=== PATIENT | female | born 1990 | race Two or more races ===

== ENCOUNTER 2016-03-25 08:03 | Day surgery (SDC) | payer OTHER ==
[2016-03-25] MEDS ORDERED: LIDOCAINE 1% 2 ML VIAL ID PRN (08:31)
[2016-03-25] MEDS ORDERED: LACTATED RINGERS 1,000 ML IV PRN (08:34)
[2016-03-25] MEDS ORDERED: IV START KIT ONE (09:25)
[2016-03-25] MEDS ORDERED: SODIUM CHLORIDE 0.9% FLUSH 10 ML ONE (09:26)
[2016-03-25] MEDS ORDERED: MIDAZOLAM HCL 1 MG/ML 2ML VIAL ONE (09:31)
[2016-03-25] MEDS ORDERED: FENTANYL 5 ML ONE (09:31)
[2016-03-25] MEDS ORDERED: LIDOCAINE 2% (PRES FREE) 5 ML VIAL ONE (09:32)
[2016-03-25] MEDS ORDERED: PROPOFOL 40 ML IV ONE (09:32)
--- NOTE | 2016-03-25 09:35 | US ---
PELVIC COMPLETE, TRANSVAGINAL ECHOGRAPHY History: Pre-D&C with the patient expects to be at 10 weeks 2 days gestational age. Previous ultrasound which is currently unavailable short no cardiac activity. Comparison: None available. Procedure: Transabdominal and transvaginal ultrasonography both were performed for this examination. Findings: Uterus: The uterus measures 11.6 x 4.4 x 5.3 cm. No myometrial mass is visualized. Endometrium: The endometrium is difficult to adequately measure with the demonstration of heterogeneous mixed echogenicity material suggested which may reflect hemorrhage products. There is a focal fluid collection identified within the endocervical canal measuring 2.0 x 1.8 x 0.7 cm. There is what may be tissue within the fluid collection with no visible cardiac activity observed. Right ovary/right adnexa: The right ovary measures 3.8 x 2.7 x 2.3 cm. There is flow within the right ovary. No right adnexal mass is visualized. Left ovary/left adnexa: The left ovary measures 2.7 x 1.2 x 2.0 cm. There is flow within the left ovary. No left adnexal mass is visualized. Pelvic cul-de-sac: No significant pelvic free fluid is observed. Impression: 1. An irregular fluid collection measuring up to 2 cm in size located within the endocervical canal, possibly the residual gestational sac. There is what may be tissue within the fluid collection with no visible cardiac activity observed. Additional heterogeneous material within the remaining endometrium may reflect residual hemorrhage products. 2. No maternal adnexal masses or free fluid observed. The findings were called to Dr. Graves at 0932 hours.
[2016-03-25 09:56] LABS: HEMATOCRIT 33.5 % (37.0-47.0); HEMOGLOBIN 11.2 gm/l (12.0-16.0); MEAN CELL VOLUME 92.3 fl (81.0-99.0); MEAN CORPUSCULAR HEMOGLOBIN 30.9 pg (27.0-31.0); MEAN CORPUSCULAR HGB CONC 33.4 g/dl (33.0-37.0); RED CELL DISTRIBUTION WIDTH 12.1 % (11.5-14.5)
[2016-03-25] MEDS ORDERED: DEXAMETHASONE SOD PHOS 4 MG/1 ML VIAL ONE (10:18)
[2016-03-25] MEDS ORDERED: ONDANSETRON 4 MG/2ML 2 ML VIAL ONE (10:18)
[2016-03-25] MEDS ORDERED: OXYTOCIN 10 UNITS/ML VIAL ONE (10:23)
[2016-03-25] MEDS ORDERED: MEPERIDINE 25 MG/ML SYRINGE IV PRN (10:26)
[2016-03-25] MEDS ORDERED: ATROPINE SULFATE 0.4 MG/1 ML VIAL IV PRN (10:26)
[2016-03-25] MEDS ORDERED: ONDANSETRON 4 MG/2ML 2 ML VIAL IV PRN ×2 (10:26→10:52)
[2016-03-25] MEDS ORDERED: FENTANYL 100 MCG/2 ML VIAL IV PRN (10:26)
[2016-03-25] MEDS ORDERED: PROMETHAZINE HCL 25 MG/ML VIAL IM PRN (10:26)
[2016-03-25] MEDS ORDERED: NALOXONE HCL 0.4 MG/ML VIAL IV PRN (10:26)
[2016-03-25] MEDS ORDERED: OXYTOCIN 10 UNITS in LACTATED RINGERS 1,000 ML IV SCH (10:30)
[2016-03-25] MEDS ORDERED: HYDROMORPHONE HCL 2 MG/ML SYRINGE ONE (10:32)
[2016-03-25] MEDS ORDERED: KETOROLAC TROMETHAMINE 30 MG/ML 1 ML VIAL ONE (10:41)
--- NOTE | 2016-03-25 10:47 | PCMBPN ---
Brief Post Op Note: Date of Procedure: 03/25/16 Start Time: 10:23 Preoperative Diagnosis: 1. demise at 7 2/7wks and Missed Postoperative Diagnosis: 1. demise at 7 2/7wks and Missed Procedure: Suction Dilation & Curretage Surgeon: Kristy Graves MD Anesthesia: general anesthesia Findings: tissue within endocervical canal and gravid, anteverted uterus approx. 10 cm size. Condition: stable Complications: none IV Fluids: 700 mLs of LR Urine Output: none Estimated Blood Loss: 20 mLs Specimens: tissue sent for chromosome analysis
[2016-03-25] MEDS ORDERED: OXYCODONE/ACETAMINOPHEN 5/325 MG TABLET PO PRN (10:52)
[2016-03-25] MEDS ORDERED: KETOROLAC TROMETHAMINE 30 MG/ML 1 ML VIAL IV PRN (10:52)
--- NOTE | 2016-03-25 10:52 | PDOC41 ---
Procedure: Dilation and Curettage Date of Procedure: 03/25/16 Start Time: 10:23 Preoperative Diagnosis: 1. demise at 7 2/7wks and Missed Postoperative Diagnosis: 1. Same Surgeon: Kristy Graves MD Indication for Procedure:25 year old at 10 2/7 weeks by LMP with demise at 7 2/7wks and missed . Anesthesia: General anesthesia Complications: [None] Estimated Blood Loss: 20 mLs IV Fluids: 700 mLs of LR Medications: 10 units Pitocin, Toradol Urine Output: none Findings: Anteverted uterus approximately 10cm size, tissue within endocervical canal, moderate amount of tissue within uterine cavity. Specimens: tissue sent for chromosome analysis Description: Patient was placed in the dorsal lithotomy position. Patient underwent general anaesthesia which was found to be appropriate. She was draped and prepared in sterile fashion. Betadine vaginal preparation was administered by nursing staff. A bimanual exam was completed and the uterus was noted in an anteverted position. A weighted sterile speculum was inserted and the cervix visualized. The cervix was grasped with a single tooth tenaculum then sounded to 10 cm. No complications with this portion of the procedure were noted. Verónica cervical dilators were then utilized up to size 14. A size 12 curved suction catheter was placed through the cervix and a firm end point was appreciated. Suction was applied up to 60 mmhg and in a rotary maneuver the suction catheter was removed. After the uterus was felt to be evacuated, sharp curetage was utilized to explore all four quadrants of the uterus. Good uterine cry was appreciated. Suction catheter was then applied one more time with minimal return of blood. The tenaculum was removed and hemostasis was appreciated at the tenaculum sites. The patient was then transitioned to the recovery room in stable condition.
[2016-03-25] MEDS ORDERED: HYDROMORPHONE HCL 1 MG/ML SYRINGE ONE (11:05)
[2016-03-25] MEDS: HYDROMORPHONE HCL 1 MG/ML SYRINGE IV PRN ×2 (11:07→11:17)
[2016-03-25 14:43] VITALS: BP 105/49
--- NOTE | 2016-03-29 12:07 | SURGPATH ---
[facility], [facility]. [address] [place] [address] Patient Name: ADAM RODRIGUEZ I. MR#: [id number] : 1990 Gender: F Specimen #: [id number] Collected: 03/25/2016 Received: 03/28/2016 Reported: 03/29/2016 Submitting Phys: FOSTER DUMONT Copy To Phys: [facility] Addendum Present Clinical History / Pre-Operative Diagnosis: Missed AB Specimen Source / Surgical Procedure Performed: Products of conception for chromosomal studies Interpretation: SPECIMEN LABELED PRODUCTS OF CONCEPTION: - PRODUCTS OF CONCEPTION - CYTOGENETICS PENDING Electronically Signed Out Eriberto Pereira M.D. Addendum Date Reported: 04/16/2016 Signed Out Addendum Diagnosis THIS CASE WAS SENT FOR ADDITIONAL TESTING: KARYOTYPE RESULTS: None IMPRESSIONS AND RECOMMENDATIONS: Culture failure: Within the limits of the material, there were no viable cells available and thus no growth in culture. Rendering Diagnostician: Oh Darden PhD, AB, FAC Clinical [employer] Director Testing Performed at: [facility]; [employer]; [place] [id number] Please see complete report under separate cover. slc04/13/2016 Electronically Signed Out Eriberto Pereira M.D. Gross Description: The specimen is received fresh labeled with the patient's name and "products of conception". An aggregate of castañeda tissue admixed with hemorrhagic material is 6.0 x 6.0 x 2.0 cm. Sectioning reveals a 1.8 cm fluid filled amnionic sac which contains a friable, soft, macerated castañeda apparent embryo. Jute Bag Sewer and placental tissue is submitted in RPMI media for chromosomal studies. Two additional sections are submitted in one cassette. Mo Cleary Microscopic Description: Microscopic performed. 1: [id number] O02.1
== END 2016-03-25 15:04 | disposition home or self-care (01) ==
LOC: SDC 08:03 → MS 09:17 → SDC 15:04
PROVIDERS: ATTEND Family Medicine
PROC: 10D17ZZ Extraction of Products of Conception, Retained, Via Natural or Artificial Opening (ICD-10-PCS; principal; 2016-03-25)
DX: O02.1 Missed abortion (principal); Z3A.01 Less than 8 weeks gestation of pregnancy
CPT/HCPCS: 84702; 85027; 36415; 86901; 76856; 76830; 59820; J1170 ×2; J3010; J1100; A9270; J2590; J1885; J2250; J2405 ×2